=== PATIENT | male | born 1960 | race Caucasian/White ===

== ENCOUNTER 2016-08-27 08:52 | Emergency (ER) | payer OTHER | END 2016-08-27 14:35 | disposition short-term general hospital (02) | LOC: ER 08:52 | DX: R65.10 Systemic inflammatory response syndrome (SIRS) of non-infectious origin without acute organ dysfunction (principal); R10.84 Generalized abdominal pain; R11.0 Nausea; E11.65 Type 2 diabetes mellitus with hyperglycemia; K21.9 Gastro-esophageal reflux disease without esophagitis; J45.909 Unspecified asthma, uncomplicated; F17.220 Nicotine dependence, chewing tobacco, uncomplicated; I10 Essential (primary) hypertension; Z87.442 Personal history of urinary calculi; Z79.82 Long term (current) use of aspirin; Z79.4 Long term (current) use of insulin; Z79.899 Other long term (current) drug therapy | CPT/HCPCS: 36415; 87502; 96361; 96365; 96368; 96375 ==

== ENCOUNTER 2016-10-07 22:07 | Emergency (ER) | payer OTHER | END 2016-10-08 01:52 | disposition home or self-care (01) | LOC: ER 22:07 | DX: R10.9 Unspecified abdominal pain (principal); M15.9 Polyosteoarthritis, unspecified; R11.0 Nausea; E87.5 Hyperkalemia; E78.5 Hyperlipidemia, unspecified; I10 Essential (primary) hypertension; J45.909 Unspecified asthma, uncomplicated; K21.9 Gastro-esophageal reflux disease without esophagitis; E11.9 Type 2 diabetes mellitus without complications; Z87.442 Personal history of urinary calculi; Z79.82 Long term (current) use of aspirin; Z79.84 Long term (current) use of oral hypoglycemic drugs; Z79.899 Other long term (current) drug therapy | CPT/HCPCS: 36415; 96361; 96374; 96375 ==